=== PATIENT | female | born 1960 | race African-American/Black ===

== ENCOUNTER 2022-11-27 05:01 | Day surgery (SDC) | payer BC, OTHER ==
[2022-11-25 12:29] VITALS: BMI 34.8
[2022-11-27] MEDS ORDERED: PHENAZOPYRIDINE HCL 100 MG TABLET (FP) ONE (08:50)
[2022-11-27] MEDS ORDERED: ceFAZolin SODIUM 1 GM VIAL ONE ×2 (08:50→09:11)
[2022-11-27] MEDS ORDERED: CEFAZOLIN 2 GM in DEXTROSE 5%-WATER - 100 ML IVPB ONE (09:00)
[2022-11-27] MEDS ORDERED: PHENAZOPYRIDINE HCL 100 MG TABLET (FP) PO ONE (09:00)
[2022-11-27] MEDS ORDERED: DEXAMETHASONE SOD PHOSPHATE 4 MG/1 ML VIAL ONE ×2 (09:11)
[2022-11-27] MEDS ORDERED: ONDANSETRON 4 MG/2 ML VIAL ONE (09:11)
[2022-11-27] MEDS ORDERED: KETOROLAC TROMETHAMINE 30 MG/1 ML VIAL ONE (09:11)
[2022-11-27] MEDS ORDERED: METOCLOPRAMIDE HCL INJECTION 10 MG/2 ML VIAL ONE (09:11)
[2022-11-27] MEDS ORDERED: SODIUM CHLORIDE 0.9% P/F 10 ML VIAL IJ ONE (09:11)
[2022-11-27] MEDS ORDERED: ROCURONIUM BROMIDE 50 MG/5 ML SYRINGE ONE (09:12)
[2022-11-27] MEDS ORDERED: PROPOFOL 40 ML ONE (09:13)
[2022-11-27] MEDS ORDERED: MIDAZOLAM HCL 2 MG/2 ML SINGLE DOSE VIAL ONE (09:15)
[2022-11-27] MEDS ORDERED: HYDROmorphone HCl 2 MG/ML VIAL ONE (09:19)
[2022-11-27] MEDS ORDERED: TRANEXAMIC ACID 1000 MG/10 ML VIAL IVPUSH ONE (10:30)
[2022-11-27] MEDS ORDERED: ACETAMINOPHEN 1000 MG/100 ML BAG IVPB ONE ×2 (10:30→20:00)
[2022-11-27] MEDS ORDERED: BUPIVACAINE HCL/PF 0.5% (5MG/ML) 10 ML VIAL ONE ×2 (11:18→12:29)
[2022-11-27] MEDS ORDERED: ACETAMINOPHEN INJECTION 100 ML IVPB ONE (12:27)
[2022-11-27] MEDS ORDERED: ceFAZolin SODIUM 1 GM VIAL IVPB ONE (12:30)
[2022-11-27] MEDS ORDERED: LABETALOL HCL 20 MG/4 ML VIAL ONE (12:42)
[2022-11-27] MEDS ORDERED: TRANEXAMIC ACID 1000 MG/10 ML VIAL ONE (12:49)
[2022-11-27] MEDS ORDERED: HEPARIN NA (PORCINE) 5,000 UNITS/ML 1ML VIAL ONE (12:52)
[2022-11-27] MEDS ORDERED: HEPARIN NA (PORCINE) 5,000 UNITS/ML 1ML VIAL SQ ONE (12:54)
[2022-11-27] MEDS ORDERED: LACTATED RINGERS SOLUTION 1,000 ML IV SCH (15:15)
[2022-11-27] MEDS ORDERED: SIMETHICONE 80 MG TAB.CHEW (FP) PO PRN (15:15)
[2022-11-27] MEDS ORDERED: IBUPROFEN 800 MG/8 ML IJ IVPB PRN (15:15)
[2022-11-27] MEDS ORDERED: DOCUSATE SODIUM 100 MG CAPSULE (FP) PO PRN (15:15)
[2022-11-27] MEDS ORDERED: oxyCODONE HCL 5 MG TABLET PO PRN ×2 (15:15)
[2022-11-27] MEDS ORDERED: ONDANSETRON 4 MG/2 ML VIAL IVPUSH PRN (15:15)
[2022-11-27] MEDS ORDERED: BISACODYL 5 MG TABLET.DR (FP) PO PRN (15:15)
[2022-11-27] MEDS ORDERED: ACETAMINOPHEN 1000 MG/100 ML BAG IVPB SCH (20:00)
[2022-11-27 20:33] LABS: HEMATOCRIT 36.9 % (32.4-45.2); HEMOGLOBIN 11.8 GM/dL (10.7-15.3); MCHC 31.9 g/dl (32.0-36.0); MEAN CELL VOLUME 78.3 fl (80-96); MEAN PLT VOLUME 7.5 fl (7.5-11.1); PLATELET COUNT 258 10^3/uL (134-434); RBC 4.71 M/mm3 (3.60-5.2); RDW 16.9 % (11.6-15.6); WHITE BLOOD COUNT 10.3 K/mm3 (4.0-10.0)
[2022-11-27 20:48] LABS: POTASSIUM 4.7 mmol/L (3.5-5.1)
[2022-11-27 20:52] LABS: BLOOD UREA NITROGEN 23.7 mg/dL (7-18)
[2022-11-27] MEDS: CEFAZOLIN 1 GM in DEXTROSE 5%-WATER - 50 ML IVPB SCH (20:53)
[2022-11-27 20:55] LABS: CREATININE 1.5 mg/dL (0.55-1.3)
[2022-11-27] MEDS ORDERED: INSULIN SLIDING SCALE (NOVOLOG) 1 VIAL SQ SCH (22:00)
[2022-11-27] MEDS ORDERED: INSULIN (LEVEMIR) 100 UNITS/ML UNITS SQ SCH (22:00)
[2022-11-27] MEDS ORDERED: ROSUVASTATIN CA 20 MG TABLET PO SCH (22:00)
[2022-11-28] MEDS: CEFAZOLIN 1 GM in DEXTROSE 5%-WATER - 50 ML IVPB SCH ×2 (05:01→13:18)
[2022-11-28] MEDS: ACETAMINOPHEN 500 MG TABLET (FP) PO PRN ×2 (05:22→11:59)
[2022-11-28] MEDS: INSULIN SLIDING SCALE (NOVOLOG) 1 VIAL SQ SCH ×2 (08:30→12:02)
[2022-11-28 08:47] LABS: HEMATOCRIT 33.7 % (32.4-45.2); MCH 25.3 pg (25.7-33.7); MCHC 32.6 g/dl (32.0-36.0); MEAN CELL VOLUME 77.7 fl (80-96); MEAN PLT VOLUME 7.9 fl (7.5-11.1); PLATELET COUNT 245 10^3/uL (134-434); RBC 4.33 M/mm3 (3.60-5.2); RDW 16.7 % (11.6-15.6)
[2022-11-28 08:58] LABS: POTASSIUM 5.1 mmol/L (3.5-5.1)
[2022-11-28 09:27] LABS: CALCIUM 8.9 mg/dL (8.5-10.1)
[2022-11-28 09:31] LABS: CREATININE 1.5 mg/dL (0.55-1.3)
[2022-11-28 09:36] VITALS: BP 147/74; PULSE 65; RESP 18; TEMP 98.7
[2022-11-28] MEDS ORDERED: amLODIPine BESYLATE 5 MG TABLET (FP) PO SCH (10:00)
[2022-11-28] MEDS ORDERED: ROSUVASTATIN CA 40 MG TABLET PO SCH (10:00)
[2022-11-28] MEDS ORDERED: LOSARTAN POTASSIUM 50 MG TABLET PO SCH (10:00)
[2022-11-28] MEDS ORDERED: ENOXAPARIN NA (PORCINE) 40 MG/0.4 ML DISP.SYRIN SQ SCH (10:00)
[2022-11-28] MEDS ORDERED: INSULIN (LEVEMIR) 100 UNITS/ML UNITS SQ SCH (12:30)
== END 2022-11-28 14:50 | disposition home or self-care (01) ==
LOC: JASUSAT 05:01 → J3W 17:40 → JASUSAT 11-28 14:50
PROVIDERS: ATTEND Obstetrics & Gynecology
PROC: 8E0W4CZ Robotic Assisted Procedure of Trunk Region, Percutaneous Endoscopic Approach (ICD-10-PCS; 2022-11-27)
PROC: 0UT9FZZ Resection of Uterus, Via Natural or Artificial Opening With Percutaneous Endoscopic Assistance (ICD-10-PCS; principal; 2022-11-27 10:15)
PROC: 0UT2FZZ Resection of Bilateral Ovaries, Via Natural or Artificial Opening With Percutaneous Endoscopic Assistance (ICD-10-PCS; 2022-11-27 10:15)
DX: D25.9 Leiomyoma of uterus, unspecified (principal); R10.2 Pelvic and perineal pain
CPT/HCPCS: 58552; S2900; 36415; 80048; 82962; 85027; 86850; 86900; 86901; 88305-TC; 88307-TC; 94010; 94760; J1644